=== PATIENT | male | born 1980 ===

== ENCOUNTER 2022-11-21 09:52 | Inpatient (IN) | payer OTHER ==
[~2022-11-21] VITALS: Ht 182.9 cm; Wt 77.1 kg
[2022-11-21 11:39] LABS: URINE APPEARANCE Clear; URINE BILIRRUBIN Negative (NEGATIVE); URINE BLOOD Negative; URINE COLOR Yellow; URINE GLUCOSE Negative (NEGATIVE); URINE LEUKOCYTE Negative; URINE NITRATE Negative; URINE PROTEIN Negative (NEGATIVE)
[2022-11-21 11:42] LABS: URINE BACTERIA 15.1 uL (0.0-1933); URINE RBC 2.5 uL (0.0-20.8); URINE WBC 3.5 uL (0.0-23.2)
[2022-11-21 11:45] LABS: HEMATOCRIT 41.4 % (39.0-48.0); HEMOGLOBIN 13.9 g/dL (13-16.00); MEAN CELL VOLUME 86.3 fL (80.0-100.00); MEAN CORPUSCULAR HGB CONC 33.6 g/dl (32.0-36.0); PLATELET COUNT 235 K/uL (150-450); RED CELL DISTRIBUTION WIDTH 14.6 % (11.5-14.5)
[2022-11-21 12:07] LABS: URINE EPITHELIAL CELLS 1.2 uL (0.0-38.8)
[2022-11-21 12:18] LABS: ALBUMIN 4.3 gm/dL (3.4-5.0); BILIRUBIN TOTAL 0.51 mg/dL (0.3-1.2); CALCIUM 9.1 mg/dL (8.5-10.1); CREATININE SERUM 0.71 mg/dL (0.70-1.30); GFR 122.88; GLOBULINA 3.3 G/DL (2.4-3.5); PHOSPHOROUS 2.8 mg/dL (2.5-4.9); POTASSIUM 4.05 mEq/L (3.5-5.1); TOTAL PROTEIN 7.6 gm/dL (6.4-8.2)
[2022-11-21 12:25] LABS: INR 1.06; PARTIAL THROMBOPLASTIN TIME 27.6 SECONDS (22.0-34.0); PROTHROMBIN TIME 11.1 SECONDS (9.0-11.5)
[2022-11-29 08:32] LABS: ALBUMIN 3.5 gm/dL (3.4-5.0); CALCIUM 8.8 mg/dL (8.5-10.1); CREATININE SERUM 0.76 mg/dL (0.70-1.30); GFR 113.59; HEMATOCRIT 40.6 % (39.0-48.0); HEMOGLOBIN 13.8 g/dL (13-16.00); MAGNESIUM 2.2 mg/dL (1.8-2.4); MEAN CELL VOLUME 86.3 fL (80.0-100.00); MEAN CORPUSCULAR HEMOGLOBIN 29.3 pg (27.00-32.0); MEAN CORPUSCULAR HGB CONC 33.9 g/dl (32.0-36.0); PHOSPHOROUS 2.8 mg/dL (2.5-4.9); PLATELET COUNT 203 K/uL (150-450); POTASSIUM 5.11 mEq/L (3.5-5.1); RED CELL DISTRIBUTION WIDTH 14.4 % (11.5-14.5)
== END 2022-11-29 14:13 | disposition home or self-care (01) | DRG 349 ==
LOC: SURH 11-28 08:35 → O/R 11-28 08:35 → SURG 11-28 10:00 → SURH 11-28 10:58 → SURG 11-28 14:45 → SURH 11-29 14:13
PROVIDERS: ADMIT Surgery; ATTEND Surgery
PROC: 0DBP7ZZ Excision of Rectum, Via Natural or Artificial Opening (ICD-10-PCS; principal; 2022-11-28 14:45)
DX: D12.8 Benign neoplasm of rectum (principal); Z20.822 Contact with and (suspected) exposure to COVID-19
CPT/HCPCS: 0184T; 45123